=== PATIENT | male | born 1995 | race Caucasian/White ===

== ENCOUNTER 2018-08-04 18:43 | Emergency (ER) | payer SELFPAY ==
[~2018-08-04] VITALS: Ht 170.2 cm; Wt 74.8 kg
[2018-08-04] MEDS ORDERED: LORAZEPAM INJ 2 MG/ML VIAL IV ONE (19:00)
[2018-08-04] MEDS ORDERED: ONDANSETRON HCL/PF 4 MG/2 ML VIAL IV ONE (19:00)
[2018-08-04] MEDS ORDERED: IV NS 0.9% 1,000 ML BAG IV ONE (19:00)
[2018-08-04] MEDS ORDERED: ONDANSETRON HCL/PF 4 MG/2 ML VIAL ONE (19:09)
[2018-08-04] MEDS ORDERED: LORAZEPAM INJ 2 MG/ML VIAL ONE (19:09)
--- NOTE | 2018-08-04 19:14 | NUR ---
ASSESSED PT ON BED, PT IS AAOX4, NOTED RESTLESSNESS, NOT IN RESPIRATORY DISTRESS, MEDS GIVEN, WILL CONTINUE TO MONITOR.
[2018-08-04 21:41] VITALS: BP 122/71
--- NOTE | 2018-08-04 21:41 | NUR ---
IV removed. Catheter intact and site benign. Pressure and 4x4 applied to site. No bleeding noted. Patient discharged to home in stable condition. Written and verbal after care instructions given. Patient verbalizes understanding of instruction.
== END 2018-08-04 20:30 | disposition home or self-care (01) ==
LOC: ER 18:46
DX: F12.929 Cannabis use, unspecified with intoxication, unspecified (principal); R94.31 Abnormal electrocardiogram [ECG] [EKG]
CPT/HCPCS: 93005; 96374; 96375; 99283; J2060; J2405; J7030